=== PATIENT | female | born 1985 | race Hispanic/Latino ===

== ENCOUNTER 2018-12-03 05:03 | Inpatient (IN) | payer SELFPAY ==
[2018-12-03] MEDS ORDERED: Ondansetron PF 4 MG/2 ML Vial ONE ×3 (05:22→13:29)
[2018-12-03] MEDS ORDERED: Morphine 4 MG/ML VIAL ONE (05:22)
[2018-12-03] MEDS ORDERED: Acetaminophen 500 MG TAB ONE (05:22)
[2018-12-03] MEDS ORDERED: Piperacillin/Tazobactam 4.5 GM VIAL ONE (05:50)
[2018-12-03 05:53] LABS: #Lymphocytes 1.1 thou/uL (1.20-3.40); #Monocytes 1.2 thou/uL (0.11-0.59); #Neutrophils 11.2 thou/uL (1.40-6.50); %Basophils 0.1 % (0.0-1.0); %Eosinophils 0.2 % (0.0-10.0); %Lymphocytes 7.8 % (21.0-51.0); %Monocytes 8.8 % (0.0-10.0); %Neutrophils 83.1 % (42.0-75.0); Hemoglobin 12.2 g/dL (12.0-16.0); Mean Corpuscular HGB CONC 31.6 g/dL (32.0-36.0); Mean Corpuscular Hemoglobin 27.1 pg (27.0-31.0); Mean Corpuscular Volume 85.8 fL (78.0-98.0); Mean Platelet Volume 7.4 fL (7.4-10.4); Platelet Count 427 thou/uL (130-400); RBC Distribution Width 12.9 % (11.5-14.5); Red Blood Cell (RBC) Count 4.51 mill/uL (4.20-5.40); White Blood Cell (WBC) Count 13.5 thou/uL (4.8-10.8)
[2018-12-03 05:58] LABS: BHCG - Serum Negative (NEGATIVE); Pregs Control Background? CLEAR/WHITE (CLR/WHITE); Pregs Control Bar Appear? YES (CONTROL BAR)
[2018-12-03 06:15] LABS: ALT (SGPT) 16 U/L (8-55); AST (SGOT) 24 U/L (5-34); Acetaminophen Less than 6.0 mcg/mL (10.0-30.0); Albumin 4.3 g/dL (3.5-5.0); Alcohol Less than 10 mg/dL (Less than 10); Alkaline Phosphatase 68 U/L (40-150); Anion Gap 16 mmol/L (10-20); BUN (Urea Nitrogen) 16 mg/dL (7.0-18.7); Bilirubin, Total 0.4 mg/dL (0.2-1.2); Calc. Creatinine Clearance 0 mL/min (70-130); Calcium 9.7 mg/dL (7.8-10.44); Carbon Dioxide 21 mmol/L (22-29); Chloride 99 mmol/L (98-107); Estimated GFR-MDRD 80; Globulin 3.7 g/dL (2.4-3.5); Glucose 106 mg/dL (70-105); Lipase 41 U/L (8-78); Potassium 4.2 mmol/L (3.5-5.1); Salicylate Less than 8.0 mg/dL (15.0-30.0); Sodium 132 mmol/L (136-145)
[2018-12-03] MEDS ORDERED: Fentanyl 100 MCG/2 ML VIAL ONE ×4 (06:41→17:18)
[2018-12-03 06:44] LABS: Bacteria/HPF 2+ HPF (None Seen); Squamous Epithelial Greater than 50 HPF (0-3)
[2018-12-03 06:45] LABS: Pregnancy Test - Urine (BHCG) Negative (Negative)
[2018-12-03 06:46] LABS: Pregu Control Background? CLEAR/WHITE (CLR/WHITE); Pregu Control Bar Appear? YES (CONTROL BAR)
[2018-12-03 06:48] LABS: Amphetamine Detected (NotDetected); Barbiturates Screen Not Detected (NotDetected); Benzodiazepine Screen Not Detected (NotDetected); Bilirubin Negative (Negative); Blood, Urine Moderate (Negative); Cocaine Metabolite Screen Not Detected (NotDetected); Glucose, Urine (Dipstick) Negative (Negative); Leukocyte Negative (Negative); Medtox Control Line Valid? VALID (VALID); Medtox Reader # READER 4; Methadone Not Detected (NotDetected); Methamphetamine Detected (NotDetected); Nitrite Negative (Negative); Opiate Screen Detected (NotDetected); Oxycodone Screen Not Detected (NotDetected); Phencyclidine (PCP) Not Detected (NotDetected); Protein, Urine (Dipstick) Trace mg/dL (Neg-Trace); THC/Cannabinoid Screen Detected (NotDetected); Tricyclic Screen Not Detected (NotDetected); Urobilinogen 0.2 mg/dL (Less than 2)
[2018-12-03 06:49] LABS: Clarity Cloudy (Clear); Specific Gravity 1.025 (1.002-1.036)
[2018-12-03] MEDS ORDERED: metroNIDAZOLE 500 MG/100 ML BAG ONE (07:13)
--- NOTE | 2018-12-03 08:32 | CT ---
ABDOMEN AND PELVIS CT WITH CONTRAST: COMPARISON: No prior comparison imaging. INDICATION: Pain, emergency exam. FINDINGS: There is a large mass arising from the pelvis and extending to the mid-upper abdomen, 28.8 cm cranioc audal x 26 cm transverse. The mass contains fat density as well as multiple calcifications and fluid density favoring an ovarian dermoid. This produces marked displacement of abdominal and pelvic cont ents due to the extensive volume of the mass. The bowel is incompletely assessed without enteric con trast, although there is borderline dilatation of fluid and air-filled bowel approximating 3 cm. Thi s could e on the basis of extrinsic compression from the mass producing an obstruction of the bowel. No pneumoperitoneum. IMPRESSION: Extensive mass arising from the pelvis extending to the upper and mid abdomen, as above, approximatin g 30 cm in diameter. This favors an ovarian dermoid given the contents of the mass and the site of e xpected origin. Extensive compression of adjacent abdominal and pelvic contents, including the possi bility of extrinsic mass effect producing early changes of bowel obstruction. Recommend surgical con sultation for further care. POS: [facility]
[2018-12-03] MEDS ORDERED: Ondansetron PF 4 MG/2 ML Vial IVP PRN ×2 (09:38→17:08)
[2018-12-03] MEDS ORDERED: Promethazine HCl 25 MG/ML VIAL IM PRN ×2 (09:38→17:08)
[2018-12-03] MEDS ORDERED: Lactated Ringer's 1,000 ML IV SCH ×2 (09:45)
[2018-12-03] MEDS ORDERED: Sodium Chloride 0.9% 1,000 ML IV SCH (09:45)
[2018-12-03] MEDS ORDERED: Morphine 4 MG/ML VIAL SLOW IVP PRN ×2 (09:47→15:30)
[2018-12-03] MEDS ORDERED: ISOVUE-370 76%-LOCM 1 ML ONE (10:48)
[2018-12-03 12:26] LABS: HBSAg Index 0.17 S/CO (0-0.99); HIV (1/2) Antibody/Antigen Non-Reactive (NonReactive); HIV 1/2 INDEX 0.09 S/CO (<1.00); Hep B Surf Ag Non-Reactive S/CO (NonReactive); Hep C IgG Ab Non-Reactive (NonReactive); Hep C Index 0.18 S/CO (0-0.79)
[2018-12-03] MEDS ORDERED: Sodium Chloride 0.9% 100 ML ONE (13:25)
[2018-12-03] MEDS ORDERED: cefOXitin 2 GM VIAL ONE (13:25)
[2018-12-03] MEDS ORDERED: Rocuronium Bromide 10 MG/ML (10ML VIAL) ONE (13:29)
[2018-12-03] MEDS ORDERED: Succinylcholine Chloride 20 MG/ML 10 ml SYRINGE FS ONE (13:29)
[2018-12-03] MEDS ORDERED: PHENYLEPHRINE-NS 100 MCG/ML 10 ML SYRINGE ONE (13:29)
[2018-12-03] MEDS ORDERED: Lidocaine 1% PF 5 ML VIAL ONE (13:29)
[2018-12-03] MEDS ORDERED: Dexamethasone 20 MG/5 ML VIAL ONE (13:29)
[2018-12-03] MEDS ORDERED: PROPOFOL 200 MG/20 ML VIAL ONE (13:29)
[2018-12-03] MEDS ORDERED: Glycopyrrolate 0.2 MG/ML 5 ML SYRINGE ONE (13:29)
[2018-12-03] MEDS ORDERED: Albumin 5% 0 ML ONE (13:34)
[2018-12-03] MEDS ORDERED: Midazolam HCl 2 mg/2 ml Vial ONE (13:34)
[2018-12-03] MEDS ORDERED: Bupivacaine HCl 0.5%/Epinephrine 1:200,000/PF 30 ml Vial ONE (14:55)
[2018-12-03] MEDS ORDERED: Zolpidem Tartrate 5 MG TAB PO PRN (17:08)
[2018-12-03] MEDS ORDERED: diphenhydrAMINE 50 MG/ML VIAL IVP PRN (17:08)
[2018-12-03] MEDS ORDERED: Naloxone HCl 0.4 mg/ml Vial IV PRN (17:08)
[2018-12-03] MEDS ORDERED: diphenhydrAMINE 50 MG/ML VIAL IM PRN (17:08)
[2018-12-03] MEDS ORDERED: fentaNYL Citrate/PF 2,000 MCG in Sodium Chloride 0.9% 60 ML IV PRN (17:08)
[2018-12-03] MEDS ORDERED: diphenhydrAMINE 25 MG CAP PO PRN (17:08)
[2018-12-03] MEDS ORDERED: Communication Order-Pharmacy FS SCH (17:15)
[2018-12-03] MEDS: Sodium Chloride 0.9% 1,000 ML IV SCH ×2 (17:46→18:08)
[2018-12-03 18:13] VITALS: BMI 23.4
[2018-12-03] MEDS: Piperacillin/Tazobactam 3.375 GM in Sodium Chloride 0.9% 100 ML IVPB SCH (18:55)
[2018-12-04] MEDS: Piperacillin/Tazobactam 3.375 GM in Sodium Chloride 0.9% 100 ML IVPB SCH ×5 (00:55→23:40)
--- NOTE | 2018-12-04 01:55 | OP ---
DATE OF PROCEDURE: 12/03/2018 PREOPERATIVE DIAGNOSES: 1. Acute pelvic pain. 2. Abdominal pelvic mass. 3. Polysubstance abuse. POSTOPERATIVE DIAGNOSES: 1. Acute pelvic pain. 2. Abdominal pelvic mass. 3. Polysubstance abuse. PROCEDURE: Exploratory laparotomy with a midline incision and RSO. ANESTHESIA: General. COUNT: Correct. COMPLICATIONS: None. CONDITION: Stable to recovery room. SPECIMEN: 30 cm right ovarian mass suspected to be a dermoid. FINDINGS: Again, a large abdominal pelvic mass. No adhesions. DESCRIPTION OF PROCEDURE: Ms. Iveth Leo, after evaluation in the emergency room, was counseled for exploratory laparotomy with a midline incision and removal of this abdominal pelvic mass. After providing written informed consent, the patient was taken to the operating room, placed under general anesthesia and in a dorsal supine position. She was prepared and draped in a normal sterile fashion. The mass could be palpated near the level of the xiphoid process. A midline incision was made and carried around the belly button to approximately 2 cm above. This incision was carried down to the level of fascia. The fascia was sharply incised and extended inferiorly and superiorly in a sharp manner. Upon entry into the abdomen, we did note that the patient had no adhesive disease around this pelvic mass. The mass appeared to be ovarian by color and palpable location of its blood supply. However, given the size of the mass, we had to extend the incision to approximately 4-5 cm above the umbilicus. The mass was gently squeezed out of the laparotomy incision and a large, very vascular pedicle was identified. This pedicle was clamped with 2 Heaneys and then several free ties were then sequentially used to tie down and cut off the blood supply. The last free tie was put in place with flashing the Heaneys. A Micki stitch was then used to secure the more proximal suture x2, which were also tied down with flashing the Micki. Once this was performed, a 2nd Micki was then brought across to the mass, ovarian side of this pedicle, and the mass was then excised out. The suture was tagged and the Micki was then removed on the pedicle side. There was initially good hemostasis noted and the pedicle was left alone in the abdomen for approximately 5 minutes. Upon inspection of this ovarian mass, which appeared to be a dermoid tumor in nature, this mass was incised in the operating room and found to be primarily full of a brown mucinous material, fat, hair, and what looked to be appeared to be teeth. Reinspection of the abdomen revealed that the pedicle was having some bleeding and on further inspection, the utero-ovarian artery on the uterine side had come loose from the suture. This was grasped on the uterine side. This was the isthmic portion of the tube utero-ovarian ligament was grasped with a Aby clamp and a Micki stitch was then used to secure hemostasis. Upon reinspection of the pedicle, there was no more bleeding. The area was then irrigated thoroughly and visualized and examined under water. There was no evidence of any continued bleeding under relaxation of the pedicle. With hemostasis in place and the mass removed, the peritoneum and fascia were closed with 1 running stitch of 0 PDS. The fat was closed with plain gut and the skin was closed with 4-0 Monocryl. About 30 cc of 0.25% Marcaine were injected into the incision and fascia for some immediate postop pain control. The patient tolerated the procedure well and was taken to recovery after extubation in stable condition. Job ID: [id number] [facility]
[2018-12-04] MEDS: Sodium Chloride 0.9% 1,000 ML IV SCH ×3 (05:56→16:20)
--- NOTE | 2018-12-04 07:36 | PDOC.EVN ---
Event Note - Event Note Event Note: S: Patient with significant pain overnight but feeling better this morning. Has ambulated to bathroom and would like to take a shower. Dmitri PO. O: AFVSS Gen - AAO, NAD Abd - soft, ATTP, nondistended. Incision well approximated without erythema or drainage A/P: 33 y/o s/p ex lab RSO for large dermoid tumor. Continue routine postop care. Consider switch to oral pain medications later today. Encourage ambulation.
[2018-12-04] MEDS ORDERED: Ibuprofen 800 MG TAB PO PRN (08:00)
[2018-12-04] MEDS ORDERED: traMADol HCl 50 MG TAB PO PRN (08:21)
[2018-12-04] MEDS ORDERED: Morphine 4 MG/ML VIAL SLOW IVP SCH (09:45)
[2018-12-04] MEDS: traMADol HCl 50 MG TAB PO PRN ×3 (09:57→20:58)
[2018-12-04 10:03] LABS: #Lymphocytes 1.7 thou/uL (1.20-3.40); #Neutrophils 13.4 thou/uL (1.40-6.50); %Basophils 0.1 % (0.0-1.0); %Eosinophils 0.2 % (0.0-10.0); %Lymphocytes 10.4 % (21.0-51.0); %Monocytes 6.1 % (0.0-10.0); %Neutrophils 83.2 % (42.0-75.0); Hemoglobin 9.5 g/dL (12.0-16.0); Mean Corpuscular HGB CONC 31.6 g/dL (32.0-36.0); Mean Corpuscular Volume 85.6 fL (78.0-98.0); Mean Platelet Volume 6.6 fL (7.4-10.4); Platelet Count 343 thou/uL (130-400); RBC Distribution Width 12.6 % (11.5-14.5); Red Blood Cell (RBC) Count 3.53 mill/uL (4.20-5.40); White Blood Cell (WBC) Count 16.1 thou/uL (4.8-10.8)
[2018-12-04] MEDS: Ketorolac Tromethamine 30 MG/ML VIAL IVP SCH ×2 (13:49→21:19)
[2018-12-05] MEDS: Sodium Chloride 0.9% 1,000 ML IV SCH ×2 (02:19→08:04)
[2018-12-05] MEDS: Ketorolac Tromethamine 30 MG/ML VIAL IVP SCH ×2 (02:20→08:02)
[2018-12-05] MEDS: traMADol HCl 50 MG TAB PO PRN ×2 (02:27→06:24)
[2018-12-05] MEDS: Piperacillin/Tazobactam 3.375 GM in Sodium Chloride 0.9% 100 ML IVPB SCH ×4 (05:24→23:38)
[2018-12-05 06:32] LABS: #Basophils 0.1 thou/uL (0.0-0.2); #Eosinphils 0.2 thou/uL (0.0-0.7); #Lymphocytes 1.7 thou/uL (1.20-3.40); #Monocytes 0.6 thou/uL (0.11-0.59); %Basophils 0.7 % (0.0-1.0); %Eosinophils 1.9 % (0.0-10.0); %Lymphocytes 20.3 % (21.0-51.0); %Monocytes 7.5 % (0.0-10.0); %Neutrophils 69.6 % (42.0-75.0); Hemoglobin 8.3 g/dL (12.0-16.0); Mean Corpuscular HGB CONC 32.2 g/dL (32.0-36.0); Mean Corpuscular Hemoglobin 28.3 pg (27.0-31.0); Mean Corpuscular Volume 87.8 fL (78.0-98.0); Mean Platelet Volume 6.9 fL (7.4-10.4); Platelet Count 286 thou/uL (130-400); RBC Distribution Width 12.6 % (11.5-14.5); Red Blood Cell (RBC) Count 2.94 mill/uL (4.20-5.40); White Blood Cell (WBC) Count 8.6 thou/uL (4.8-10.8)
--- NOTE | 2018-12-05 07:50 | PRG ---
DATE OF SERVICE: 12/05/2018 SUBJECTIVE: The patient is postop day 2 status post exploratory laparotomy with RSO for a large 30 cm mass, suspicious for dermoid tumor. The patient had a positive blood culture result yesterday with 1 of 2 cultures with gram-positive cocci. Final identification pending. Report states it is not Staph aureus, Staph epidermidis, Streptococcus pyogenes, Streptococcus pneumoniae, Listeria or Enterococcus. The patient reports that she has been eating regular diet, had a good dinner yesterday, but is not hungry right now this morning. The patient denies passing gas or bowel movement. She has had difficulty with pain control on tramadol and Toradol, but is ambulating and getting about. She reports some dizziness at times. OBJECTIVE: VITAL SIGNS: Blood pressure 90/58, pulse of 81, respiratory rate 18, temperature 97.6. The patient has remained afebrile since the time of surgery. GENERAL: Patient appears to be in some distress, though alert, oriented, cooperative, and pleasant to interact with. SKIN: Incision is clean, dry, and intact. Soft. LABORATORY DATA: This morning; white count 8.6, hemoglobin 8.3, hematocrit 25.8, platelet count of 286,000. ASSESSMENT AND PLAN: The patient is a 33-year-old female, postop day 2 status post exploratory laparotomy and RSO for large, presumably dermoid tumor. The patient has blood cultures x1 positive for gram-positive cocci with final results pending. The patient has been on Zosyn given her presentation of fever and elevated white count. We will continue the Zosyn until these blood cultures result. The patient has been afebrile since surgery. Pain has been under some control now that the patient is ambulating. We will continue with the tramadol, ibuprofen and add Tylenol to her regimen. The patient has been encouraged to continue to ambulate with assistance if necessary as the patient is describing some dizziness at times. Specimen pathology results are still pending. Job ID: [id number]
[2018-12-05] MEDS: Acetaminophen 500 MG TAB PO SCH ×3 (08:02→18:17)
[2018-12-05] MEDS: Ibuprofen 800 MG TAB PO SCH ×2 (15:33→23:39)
--- NOTE | 2018-12-05 21:55 | PDOC.EVN ---
Event Note - Event Note Event Note: MAE onCall: @1040 Blood culture back with likely skin containment. No fevers today. Path pending. Prob DC to home tomorrow.
[2018-12-06] MEDS: Acetaminophen 500 MG TAB PO SCH ×2 (01:33→06:10)
[2018-12-06] MEDS: Piperacillin/Tazobactam 3.375 GM in Sodium Chloride 0.9% 100 ML IVPB SCH (05:21)
[2018-12-06] MEDS: Sodium Chloride 0.9% 1,000 ML IV SCH (05:24)
--- NOTE | 2018-12-06 06:38 | PDOC.EVN ---
Event Note - Event Note Event Note: MAE Patient seen at bedside Time: 629 See dictation. Cleared for discharge. Incision c/d/i. After I examined her abdomen this morning, the patient was not happy that I had "woken her up to see my stomach". I explained that I was seeing how she was healing before discharge. Nonetheless , she was not happy. She was also not happy with the "nurses here". S. as above. O. VSS afebrile" Path pending A/P: 3 days postop...no evidence ileus of infection. Stop ABX OK for DC to home [facility] for outpatient [facility] in 2 weeks
--- NOTE | 2018-12-06 07:06 | DIS ---
DATE OF ADMISSION: 12/03/2018 DATE OF DISCHARGE: 12/06/2018 PRINCIPAL DIAGNOSES: 1. Pelvic pain. 2. Large pelvic mass. PRINCIPLE PROCEDURE: Exploratory laparotomy with a midline incision and RSO. SERVICES CONSULTED: Anesthesia. HOSPITAL COURSE: In brief, this patient was admitted with Dr. Chico Hernandez on-call. The patient presented to the emergency room with abdominal pain. A large pelvic mass was noted on evaluation. Dr. Hernandez elected to proceed with a midline exploratory laparotomy due to acute pelvic pain. He noted an approximately 30- cm pelvic mass and proceeded with an RSO. She was also initially febrile in the emergency room, so blood cultures were drawn. Blood cultures returned with no growth at 48 hours in one tube and one bottle showed micrococcus, thought to be contaminant. I evaluated the patient on 12/06/2018 in the morning (06:30) at bedside. I found the incision to be clean, dry, and intact. There was no abdominal distention and no guarding. On evaluation, the patient was slightly not cooperative and was not happy to have the abdominal examination. She was also not happy with our nursing staff. She stated that "none of the nurses were any good." However , this may be secondary to the patient's personality as I have been told the patient has been like this since admission. I attempted to appease her by asking if she had any further questions or issues, but she declined to answer. I discussed the patient's affect with the correctional case records supervisor on the floor, she stated she was also belligerent with her and the nursing staff. In terms of path results, the surgical specimen still was not resulted at the time of this dictation. On vital sign review, the patient was afebrile when I evaluated her. It is important to note that she was still receiving IV piperacillin-tazobactam (Zosyn), which I stopped after my evaluation. Through discharge instructions, I gave her instructions to return to [facility] in 2 weeks for a wound check. Medications to go home with will include ibuprofen 800 mg p.o. q.8 hours p.r.n. Because of concern of polysubstance abuse per the ER, and per Dr. Hernandez's handoff to me, I did not write for any narcotic based medication. The incision was clean, dry, and intact with suture. Job ID: [id number] [facility]
[2018-12-06 07:10] VITALS: BP 106/68; TEMP 99.1
[2018-12-06] MEDS: Ibuprofen 800 MG TAB PO SCH (08:22)
--- NOTE | 2018-12-07 14:42 | EKG ---
Test Reason : Blood Pressure : / mmHG Vent. Rate : 133 BPM Atrial Rate : 133 BPM P-R Int : 124 ms QRS Dur : 078 ms QT Int : 290 ms P-R-T Axes : 075 080 065 degrees QTc Int : 431 ms Sinus tachycardia Nonspecific ST abnormality Abnormal ECG Confirmed by SHAMA KANG M.D. ([id number]), food expeditor MELANY RUIZ ([id number]) on 12/07/2018 2:42:18 PM Referred By: Confirmed By:SHAMA KANG M.D.
--- NOTE | 2018-12-11 12:54 | PDOC.EVN ---
Event Note - Event Note Event Note: I have made contact with Ms Loe by phone and have given her the updated info on pathology, mixed malignant germ cell tumor, and her need to see [facility]. Pt' s post op visit has been planned with [facility]. Pt is unfunded. Will contact [facility] for assistance.
== END 2018-12-06 10:57 | disposition home or self-care (01) | DRG 743 ==
LOC: ERS 05:03 → ERHOLD 09:54 → 3SE 17:34 → T4-B 12-04 11:02
PROVIDERS: ADMIT Specialist; ATTEND Specialist
PROC: 0UT50ZZ Resection of Right Fallopian Tube, Open Approach (ICD-10-PCS; principal; 2018-12-03)
PROC: 0UT00ZZ Resection of Right Ovary, Open Approach (ICD-10-PCS; 2018-12-03)
DX: D27.0 Benign neoplasm of right ovary (principal); N83.8 Other noninflammatory disorders of ovary, fallopian tube and broad ligament; I10 Essential (primary) hypertension; F19.10 Other psychoactive substance abuse, uncomplicated; F41.9 Anxiety disorder, unspecified; F32.9 Major depressive disorder, single episode, unspecified; Z90.49 Acquired absence of other specified parts of digestive tract
CPT/HCPCS: 36415; 51701; 74177; 80053; 80306; 80307; 81003; 81015; 81025; 83605; 83690; 84443; 84703; 85025; 86803; 86850; 86900; 86901; 87040; 87149; 87340; 87389; 88307; 88341; 88342; 93005; 96361; 96365; 96366; 96367; 96375; 96376; A4353; J0131; J0670; J0694; J1100; J1885; J2001; J2250; J2270; J2405; J2543; J2704; J3010; J3490; P9045; Q9966

== ENCOUNTER 2019-02-27 19:11 | Emergency (ER) | payer SELFPAY ==
[~2019-02-27 19:11] MED LIST: Iopamidol-370 76% 500 ML 1 ML ONE
[2019-02-27 19:56] LABS: #Basophils 0.1 thou/uL (0.0-0.2); #Eosinphils 0.1 thou/uL (0.0-0.7); #Lymphocytes 1.5 thou/uL (1.20-3.40); #Monocytes 0.5 thou/uL (0.11-0.59); #Neutrophils 6.6 thou/uL (1.40-6.50); %Basophils 0.7 % (0.0-1.0); %Eosinophils 0.8 % (0.0-10.0); %Lymphocytes 16.8 % (21.0-51.0); %Monocytes 6.2 % (0.0-10.0); %Neutrophils 75.6 % (42.0-75.0); Hemoglobin 11.1 g/dL (12.0-16.0); Mean Corpuscular HGB CONC 32.6 g/dL (32.0-36.0); Mean Corpuscular Hemoglobin 28.4 pg (27.0-31.0); Mean Platelet Volume 6.6 fL (7.4-10.4); Platelet Count 520 thou/uL (130-400); RBC Distribution Width 12.8 % (11.5-14.5); White Blood Cell (WBC) Count 8.8 thou/uL (4.8-10.8)
[2019-02-27 19:57] LABS: Pregnancy Test - Urine (BHCG) Negative (Negative); Pregu Control Background? CLEAR/WHITE (CLR/WHITE); Pregu Control Bar Appear? YES (CONTROL BAR); Specific Gravity 1.026 (1.002-1.036)
[2019-02-27] MEDS ORDERED: Ondansetron PF 4 MG/2 ML Vial ONE (19:57)
[2019-02-27] MEDS ORDERED: Morphine 4 MG/ML VIAL ONE ×2 (19:57→20:55)
[2019-02-27 19:59] LABS: Bilirubin Negative (Negative); Blood, Urine Negative (Negative); Clarity Clear (Clear); Glucose, Urine (Dipstick) Normal (Negative); Leukocyte 500 Leu/uL (Negative); Nitrite Negative (Negative); Protein, Urine (Dipstick) 10 mg/dL (Neg-Trace); Squamous Epithelial 0-3 HPF (0-3); Urobilinogen Normal mg/dL (Less than 2); WBC/HPF Greater than 50 HPF (0-3)
[2019-02-27 20:10] LABS: Bacteria/HPF None Seen HPF (None Seen); RBC/HPF 0-3 HPF (0-3)
[2019-02-27 20:19] LABS: ALT (SGPT) Less than 7 U/L (8-55); AST (SGOT) 12 U/L (5-34); Albumin 4.2 g/dL (3.5-5.0); Alkaline Phosphatase 72 U/L (40-110); Anion Gap 13 mmol/L (10-20); BUN (Urea Nitrogen) 15 mg/dL (7.0-18.7); Bilirubin, Total 0.2 mg/dL (0.2-1.2); Calc. Creatinine Clearance 0 mL/min (70-130); Calcium 9.5 mg/dL (7.8-10.44); Carbon Dioxide 27 mmol/L (22-29); Chloride 102 mmol/L (98-107); Estimated GFR-MDRD 54; Globulin 3.5 g/dL (2.4-3.5); Glucose 96 mg/dL (70-105); Potassium 4.2 mmol/L (3.5-5.1); Protein, Total 7.7 g/dL (6.0-8.3); Sodium 138 mmol/L (136-145)
--- NOTE | 2019-02-27 21:10 | CT ---
CT abdomen and pelvis with IV contrast HISTORY: Abdomen pain. Germ cell tumor malignant. COMPARISON: 12/03/2018. FINDINGS: The lung bases are clear. Multiple irregular low density masses are now scattered throughou t the liver, involving each lobe and measuring up to 1.6 cm greatest diameter. The large mixed density mass previously demonstrated within the lower anterior abdomen and pelvis is not the same in appearance on today's exam. It has apparently been removed surgically. A large mass in the retroperitoneum, however, now encompasses the lower abdominal aorta, including th e renal arteries. On the axial images, it measures up to 10.4 cm x 9.6 cm greatest diameters. It extends inferiorly along the right iliac level and extends superiorly into the retrocrural space and the lower posterior mediastinum. The mass compresses and displaces the inferior vena cava laterally. Exact level of compression and obstruction of the left ureter is not evident, although the left kidne y is now enlarged and shows delayed enhancement. There is mild distention of the left renal collecting structures. Within the left lower pelvis, just to the left of the cervix, and oval lobular well circumscribed lidya ogeneous fluid density lesion is now present, measuring up to 5.3 cm length by 2.6 cm diameter. It is more pronounced than on the prior study. IMPRESSION: While the large heterogeneous mass on the previous exam has been removed, there is now a very large retroperitoneal mass surrounding the aorta and extending into the posterior mediastinum. It compresses the inferior vena cava and results in obstruction of the left ureter. It is likely rela noelle to the germ cell malignancy. Mild left hydronephrosis due to left ureteral obstruction. Component of the malignancy is also seen as a lobular fluid density mass in the left lower pelvis. Widespread metastatic disease of the liver.
== END 2019-02-28 01:05 | disposition short-term general hospital (02) ==
LOC: ERS 19:11
DX: K68.9 Other disorders of retroperitoneum (principal); C78.7 Secondary malignant neoplasm of liver and intrahepatic bile duct; F41.9 Anxiety disorder, unspecified; F32.9 Major depressive disorder, single episode, unspecified; F17.210 Nicotine dependence, cigarettes, uncomplicated
CPT/HCPCS: 74177; 80053; 81003; 81015; 81025; 85025; 96361; 96374; 96375; 96376; J2270; J2405; Q9967

== ENCOUNTER 2019-03-19 08:51 | Inpatient (IN) | payer OTHER ==
[2019-03-19] MEDS ORDERED: Morphine 4 MG/ML VIAL ONE (09:53)
[2019-03-19] MEDS ORDERED: Ondansetron PF 4 MG/2 ML Vial ONE (09:53)
[2019-03-19] MEDS ORDERED: Ketorolac Tromethamine 30 MG/ML VIAL ONE (09:54)
[2019-03-19] MEDS ORDERED: Clindamycin/D5W 900 mg/50 ml Premix Bag ONE (10:14)
[2019-03-19] MEDS ORDERED: Iopamidol-370 76% 500 ML 1 ML ONE (11:39)
[2019-03-19] MEDS ORDERED: Fentanyl 100 MCG/2 ML VIAL ONE (12:22)
[2019-03-19] MEDS ORDERED: Rocuronium Bromide 50 MG/5 ML VIAL ONE ×2 (12:22→12:23)
[2019-03-19] MEDS ORDERED: Ketamine 50 MG/ML (10ML VIAL) ONE (12:24)
[2019-03-19] MEDS ORDERED: EPINEPHrine 1 MG/10 ML Abboject SYRINGE ONE (12:32)
[2019-03-19] MEDS ORDERED: fentaNYL Citrate/PF 2,000 MCG in Sodium Chloride 0.9% 60 ML IV SCH ×2 (12:43→15:30)
[2019-03-19] MEDS ORDERED: Propofol 1,000 MG/100 ML VIAL IV ONE (12:47)
[2019-03-19 13:04] LABS: Actual Bicarbonate (HCO3a) 19.7 mEq/L (22-28); Analyzer IN Cardio ER; Base Excess (BEa) -4.6 mEq/L (-2.0 to +3.0); CO2 Tension 32.7 mmHg (35.0-45.0); Calcium, Ionized 1.11 mmol/L (1.12-1.30); Carboxyhemoglobin (COHb) 0.8 gm% (0.0-3.0); Hemoglobin (Hb) 7.5 g/dL (12.0-16.0); O2 Tension (PaO2) 119.4 mmHg (80.0-100.0); Potassium - ABG Lab 3.08 mmol/L (3.70-5.30)
[2019-03-19 13:05] LABS: ALV-art Gradient 124.925 (0-20); Puncture Site RBRACH
--- NOTE | 2019-03-19 13:52 | RAD ---
XR Chest 1 View Portable HISTORY: Respiratory failure COMPARISON: 10/15/2016 FINDINGS: There has been placement of endotracheal tube at the origin of the right main bronchus. Dionicio ogastric tube can be traced into the stomach with tip excluded from the film. The heart size is normal. The lungs are clear. Discussed over the telephone with ER physician Dr. Pablo Hercules at 1:48 PM.
[2019-03-19] MEDS ORDERED: Cefepime 2 GM in Sodium Chloride 0.9% 100 ML IVPB SCH (14:00)
[2019-03-19] MEDS ORDERED: Cefepime 2 GM VIAL ONE (14:23)
[2019-03-19] MEDS ORDERED: Sodium Chloride 0.9% 100 ML ONE (14:23)
[2019-03-19] MEDS ORDERED: Vancomycin 1.5 GRAM/300 ML BAG 1.5 GM in Premix Bag 1 BAG IVPB SCH (15:00)
--- NOTE | 2019-03-19 15:04 | CT ---
CT SOFT TISSUES NECK WITH IV CONTRAST: INDICATIONS: Stage IV ovarian cancer status post initiation of chemotherapy last week, now concern for possible to nsillar abscess. FINDINGS: There is prominent edematous change involving the nasopharynx, oropharynx and right aspect of the hyp opharynx with prominent phlegmon seen involving the right peritonsillar region on image 29 of series 2. No definite drainable fluid collection is evident. There is prominent swelling of the uvula. There is mild retropharyngeal edema without evidence of abscess. There are mild reactive edematous changes involving the epiglottis and the right aspects of the aryepiglottic folds. The subglottic trachea is normal appearing. There are likely reactive lymph nodes involving the right aspect of the neck, with in the right level 2A and 3 positions. The largest is seen within the right level 2A position, measur ing 1.3 cm. 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 The submandibul ar glands and parotids are within normal limits. The thyroid gland is normal appearing. The lung apic es are clear. The upper mediastinum appears within normal limits. There is scattered degenerative and osteoarthritic change. There are small mucus retention cysts within the right maxillary sinus. IMPRESSION: 1. Prominent infection involving the nasopharynx, oropharynx and hypopharynx with suspected region of right paratonsillar phlegmon. No definite drainable fluid collection is evident. There is reactive l ymphadenopathy at the right aspect of the neck. No subglottic process is going on. Small amount of re tropharyngeal edema is present without evidence of a drainable abscess. 2. Findings were called to Dr. Rajput at 11:55 a.m. on 03/19/2019. CODE CR POS: OFF
[2019-03-19 15:21] LABS: ALT (SGPT) 24 U/L (8-55); AST (SGOT) 16 U/L (5-34); Albumin 3.8 g/dL (3.5-5.0); Alkaline Phosphatase 92 U/L (40-110); Anion Gap 14 mmol/L (10-20); BUN (Urea Nitrogen) 8 mg/dL (7.0-18.7); Bilirubin, Total 0.4 mg/dL (0.2-1.2); Calc. Creatinine Clearance 0 mL/min (70-130); Calcium 9.4 mg/dL (7.8-10.44); Carbon Dioxide 24 mmol/L (22-29); Chloride 100 mmol/L (98-107); Estimated GFR-MDRD 89; Glucose 85 mg/dL (70-105); Potassium 3.1 mmol/L (3.5-5.1); Protein, Total 7.8 g/dL (6.0-8.3); Sodium 135 mmol/L (136-145)
[2019-03-19 15:23] LABS: Lactic Acid 1.4 mmol/L (0.5-2.2)
[2019-03-19] MEDS ORDERED: Lorazepam 2 MG/ML VIAL SLOW IVP PRN (15:28)
[2019-03-19] MEDS ORDERED: Propofol BOLUS 1,000 MG/100 ML VIAL IV PRN (15:28)
[2019-03-19] MEDS ORDERED: Fentanyl BOLUS 250 ML IVPB PRN (15:28)
[2019-03-19] MEDS ORDERED: DISCONTINUE PREVIOUS NARCOTIC PAIN MEDICATIONS AND BENZODIAZEPINES FS SCH (15:28)
[2019-03-19] MEDS ORDERED: Morphine 2 MG/ML SYRINGE SLOW IVP PRN (15:28)
[2019-03-19] MEDS ORDERED: Propofol 1,000 MG/100 ML VIAL IV PRN (15:28)
[2019-03-19 15:35] LABS: Hemoglobin 11.4 g/dL (12.0-16.0); Mean Corpuscular HGB CONC 32.1 g/dL (32.0-36.0); Mean Corpuscular Hemoglobin 27.7 pg (27.0-31.0); Mean Corpuscular Volume 86.3 fL (78.0-98.0); Platelet Count 655 thou/uL (130-400); RBC Distribution Width 12.1 % (11.5-14.5); Red Blood Cell (RBC) Count 4.11 mill/uL (4.20-5.40); White Blood Cell (WBC) Count 2.1 thou/uL (4.8-10.8)
[2019-03-19 15:36] LABS: Band 13 % (5-11); Lymphocytes 7 % (21-51); MDiff Complete? YES; Metamyelocyte 1 % (0-0); Monocytes 21 % (0-10); Neutrophil 58 % (42-75); Polychromasia SLIGHT = 2-3 cells (100X) (0-2/hpf)
[2019-03-19] MEDS ORDERED: Acetaminophen 325 MG Suppository PR PRN (15:44)
[2019-03-19] MEDS ORDERED: Norepinephrine 8 MG/0.9% NS 250 ML IVPB PRN (15:44)
[2019-03-19] MEDS ORDERED: Acetaminophen 650 MG/20.3 ML UDCUP PO PRN (15:44)
[2019-03-19] MEDS ORDERED: Bisacodyl 10 MG SUPP PR PRN (15:44)
[2019-03-19] MEDS ORDERED: SYSTANE 3.5 GM TUBE EA EYE PRN (15:44)
[2019-03-19] MEDS ORDERED: Ventilator Sedation Protocol 1 EACH FS SCH (15:45)
[2019-03-19] MEDS ORDERED: Acetaminophen 325 MG TAB PO PRN (15:48)
--- NOTE | 2019-03-19 15:51 | RAD ---
PORTABLE CHEST: Date: 03/19/19 HISTORY: Central line placement. COMPARISON: Exam done earlier today. FINDINGS: Endotracheal and NG tubes remain in satisfactory position. There has been interval placement of a lef t subclavian line. Catheter tip overlies the distal superior vena cava/right atrium junction. There a re no signs of pneumothorax. IMPRESSION: No evidence for pneumothorax. POS: [facility]
[2019-03-19 16:03] VITALS: BP 151/106
[2019-03-19] MEDS ORDERED: D5 0.9% NS w/ 20 mEq KCl 1,000 ML IV SCH (16:15)
[2019-03-19] MEDS ORDERED: Norepinephrine 8 MG in Dextrose 5% in Water 242 ML IVPB PRN (16:50)
[2019-03-19 17:10] VITALS: TEMP 98.8
[2019-03-19 17:38] LABS: Bilirubin Negative (Negative); Blood, Urine Moderate (Negative); Clarity Hazy (Clear); Glucose, Urine (Dipstick) Negative (Negative); Leukocyte Negative (Negative); Nitrite Negative (Negative); Protein, Urine (Dipstick) 100 mg/dL (Neg-Trace); Urobilinogen 0.2 mg/dL (Less than 2)
[2019-03-19 17:39] LABS: Bacteria/HPF None Seen HPF (None Seen); Trichomonas/HPF 1+ HPF (None Seen)
[2019-03-19] MEDS ORDERED: Albumin 25% 25 GM/100 ML BOT IVPB SCH (17:45)
[2019-03-19] MEDS ORDERED: Sodium Chloride 0.9% 1,000 ML IV SCH (17:45)
[2019-03-19] MEDS ORDERED: Piperacillin/Tazobactam 3.375 GM in Sodium Chloride 0.9% 100 ML IVPB SCH (18:00)
[2019-03-19] MEDS ORDERED: Sodium Chloride 0.45% 1,000 ML IV SCH (18:45)
--- NOTE | 2019-03-19 18:51 | CON ---
DATE OF CONSULTATION: HISTORY OF PRESENT ILLNESS: Iveth Leo is a 34-year-old female, who gets care at [facility]. Apparently, she has received chemo recently. She presented with hypotension and sore throat. She was found to have a peritonsillar abscess. She was intubated, received a large volume resuscitation in the emergency department and was transferred to the critical care unit. I was consulted. PAST MEDICAL HISTORY: Past medical history is not directly obtainable from her, but the emergency department physician that I talked to told me she had stage IV cervical cancer. The ER note says she has stage IV ovarian cancer. She has had a cholecystectomy and appendectomy in the past. SOCIAL HISTORY: It is unknown whether she smokes or drinks, but the ER record says she uses drugs, methamphetamines and still smokes. ALLERGIES: THERE ARE NO REPORTED ALLERGIES. PHYSICAL EXAMINATION: VITAL SIGNS: Blood pressure 103/66, heart rate was in the 90s, respiratory rate was 18 while on mechanical ventilation. Her minute volume was about 8 L a minute. HEAD AND NECK: Unremarkable. She had an oral endotracheal tube in place. She nodded that she just wanted to be sedated. At that time, I asked the nurse to increase her sedation. LUNGS: Clear anteriorly. HEART: Regular rhythm. S1 and S2 are normal. ABDOMEN: Soft Chest x-ray, there are clear lung green. CT of her neck showed nasopharyngeal, oropharyngeal, and hypopharyngeal peritonsillar phlegmon. Ear, Nose, and Throat Surgery does not feel like she has much swelling from my discussion with Dr. Albarado. After Dr. Albarado's visit with the patient, I was called back to the room, and she was writing on a piece of paper that she wanted the tube out and wanted to . She was on propofol and fentanyl at that time, and I did not feel that she could be considered competent given that she presented with clinical sepsis. I asked the nurses to sedate her more. In the interim, she has since self-extubated. I have asked the charge nurse to have someone track down family to get them up here to talk to her. She wants to make herself a do not resuscitate patient with the family's consent that is not unreasonable, but she is in a position where I am not sure she is competent to sign out against medical advice. Critical care time, an hour and a half in total, multiple visits to the room plus initial intervention plus coordinating care on the unit. Job ID: [id number]
[2019-03-19 19:27] LABS: Amphetamine Not Detected (NotDetected); Barbiturates Screen Not Detected (NotDetected); Benzodiazepine Screen Not Detected (NotDetected); Cocaine Metabolite Screen Not Detected (NotDetected); Medtox Control Line Valid? VALID (VALID); Medtox Reader # READER 1; Methadone Not Detected (NotDetected); Methamphetamine Not Detected (NotDetected); Opiate Screen Not Detected (NotDetected); Oxycodone Screen Not Detected (NotDetected); Phencyclidine (PCP) Not Detected (NotDetected); THC/Cannabinoid Screen Detected (NotDetected); Tricyclic Screen Not Detected (NotDetected)
[2019-03-19] MEDS ORDERED: Famotidine 40 MG/5 ML Oral Suspension PER TUBE SCH (21:00)
[2019-03-19] MEDS ORDERED: Famotidine/PF 20 mg/2ml Vial SLOW IVP SCH (21:00)
[2019-03-19] MEDS ORDERED: Heparin 5,000 UNITS/ML VIAL SC SCH (21:00)
[2019-03-19] MEDS ORDERED: Vancomycin HCl 1 GM in Premix Bag 1 BAG IVPB SCH (22:00)
--- NOTE | 2019-03-20 00:50 | CON ---
DATE OF CONSULTATION: REASON FOR CONSULTATION: The patient was seen in consultation by Dr. Dunn for evaluation of tonsil abscess. BRIEF HISTORY: This is a 34-year-old female with history of cancer. She presented to the emergency room with septic conditions with low blood pressures. CT scan confirmed a peritonsillar cellulitis, retropharyngeal cellulitis, and lateral pharyngeal wall cellulitis. There was no fluid collections. They required surgical draining. She was intubated secondary to low blood pressures and was being prepared for transfer to [facility]. The patient now remains intubated in the ICU. She feels her swelling has improved, although she is currently on sedative medicines. PHYSICAL EXAMINATION: HEENT: The patient has orotracheal intubation present. The limited exam of the oral cavity shows markedly enlarged tonsils bilaterally, nearly touching the endotracheal tube with mild erythema. Tongue is soft. Floor of mouth is clear. NECK: Shows some mildly tender lymphadenopathy in the right level 2 and right level 3 areas, otherwise the anterior neck landmarks are within normal limits. DIAGNOSTIC STUDIES: Her CT scan of the neck with contrast was reviewed by me, which shows intratonsillar cellulitis and peritonsillar cellulitis along with mild retropharyngeal cellulitis. No evidence of abscess collection. There are some lymph nodes 2 cm or less scattered throughout the jugulodigastric chain on the right more so than the left. ASSESSMENT: 1. Bilateral acute tonsillitis. 2. Peritonsillar cellulitis. No evidence of abscess. 3. Retropharyngeal cellulitis. No evidence of abscess. PLAN: She can remain intubated overnight septic condition and hypotensive episodes earlier and possible concern for airway compromise. Also, she will continue on her IV antibiotics overnight, likely extubation in the morning, and we will follow up with her then. Job ID: [id number]
--- NOTE | 2019-03-20 07:19 | HP ---
PRIMARY CARE: [facility]. CHIEF COMPLAINT: Generalized weakness. HISTORY OF PRESENT ILLNESS: The patient is a 34-year-old female with ovarian cancer, currently on chemotherapy, presented to the emergency room with above complaints. The patient is currently intubated and not much information is available from the patient. No family at the bedside. History obtained from the ER chart. The patient's last chemotherapy was approximately 1 week ago at [facility]. She has stage IV ovarian cancer. She presented with generalized weakness and body aches. She also complained of pain in her inner throat along with low-grade fever. She denies any sick contacts. Her initial vital signs in the emergency room showed temperature 99 with respirations of 16, heart rate of 124 with a blood pressure 134/76. She was subsequently intubated for airway protection. PAST MEDICAL HISTORY: 1. Ovarian cancer, on chemotherapy, at [facility]. 2. Anxiety. 3. History of seizure disorder during childhood. PAST SURGICAL HISTORY: 1. Appendectomy. 2. Surgery for tubal . 3. Exploratory laparotomy for pelvic mass excision in November of this year. ALLERGIES: NO KNOWN DRUG ALLERGIES. CURRENT HOME MEDICATIONS: Per ER report, the patient is on Augmentin, citalopram, hydroxyzine, oxycodone, and olanzapine. SOCIAL HISTORY: The patient has a history of smoking. Denies current drug use. She has abused methamphetamines in the past. FAMILY HISTORY: Negative for premature coronary artery disease. REVIEW OF SYSTEMS: Cannot be obtained from the patient due to current clinical status. PHYSICAL EXAMINATION: VITAL SIGNS: As discussed above. GENERAL: 34-year-old female, intubated on mechanical ventilation HEENT: Head, atraumatic and normocephalic. The patient is intubated. NECK: Supple. No JVD. LUNGS: Showed scattered rhonchi without significant rales. No wheezing. Lungs were symmetrical. HEART: S1, S2 present. Regular rate and rhythm, tachycardic. ABDOMEN: Soft. Bowel sounds present. No rebound or guarding. EXTREMITIES: No edema or calf tenderness. NEUROLOGIC: Grossly nonfocal. The patient is following commands appropriately. PSYCHIATRY: Alert, awake, and oriented x3. The patient is awake. SKIN: Warm and dry. LYMPH NODES: No palpable lymph nodes in the neck. PERIPHERAL VASCULAR: Radial pulses palpable bilaterally, low volume. MUSCULOSKELETAL: No joint swelling or tenderness. LABORATORY FINDINGS: CBC showed WBC 2.1 with 13% bandemia, 58% neutrophil. ABGs showed pH 7.40 with pCO2 of 32.7, and bicarbonate 19.7 with O2 saturation of 98.2. Chemistry showed sodium 135, potassium 3.1, chloride 100, bicarb 24, BUN 8, creatinine 0.74. LFTs in normal range. Lactic acid 1.4. Telemetry monitoring by my review showed sinus tachycardia. IMAGING STUDIES: Chest x-ray by my review was negative for infiltrate. CT scan of the soft tissue of the neck showed prominent edematous changes involving the nasopharynx, oropharynx and right aspect of the hypopharynx with prominent phlegmon seen involving the right peritonsillar region without any definite drainable fluid collection. There was also prominent swelling of the uvula along with mild reactive edematous changes involving the epiglottis. IMPRESSION: 1. Severe sepsis secondary to suspected right peritonsillar abscess. 2. Acute hypoxic respiratory failure secondary to #one. 3. Hyponatremia/hypokalemia. 4. Chronic kidney disease, stage 2. 5. Chronic anemia. 6. Leukopenia, probably secondary to chemotherapy. 7. Ovarian cancer, on chemotherapy. 8. Tobacco dependence. PLAN: The patient will be monitored in the intensive care unit. We will start her on vancomycin and Zosyn. Consult Infectious Disease, ENT as well as Critical Care. IV hydration. We will start her on low-dose Levophed for septic shock. Daily x-rays. Daily ABGs. Recheck labs in a.m. Isolation, ventilation, sedation protocol. We will discuss the plan with the family when they arrive. Plan was discussed with the patient. Job ID: [id number]
--- NOTE | 2019-03-20 08:36 | DIS ---
DATE OF ADMISSION: 03/19/2019 DATE OF DISCHARGE: 03/19/2019 DISCHARGE DISPOSITION: Home. The patient signed against medical advice. BRIEF HOSPITAL COURSE: Please refer to my history and physical dictated earlier today for details on initial hospital presentation. The patient was admitted to the intensive care unit with a diagnosis of acute hypoxic respiratory failure secondary to suspected right peritonsillar abscess. The patient was monitored in the intensive care unit. She was evaluated by Pulmonary Critical Care, Dr. Dunn, as well as ENT. Later on in the evening, the patient signed against medical advise. Please note the nurse's note for detail. FINAL DIAGNOSIS: Please refer to my history and physical dictated earlier today. Job ID: [id number]
== END 2019-03-19 19:35 | disposition left against medical advice (07) | DRG 871 ==
LOC: ERS 08:51 → CCU 15:03
PROVIDERS: ADMIT Internal Medicine; ATTEND Internal Medicine
PROC: 5A1935Z Respiratory Ventilation, Less than 24 Consecutive Hours (ICD-10-PCS; principal; 2019-03-19)
PROC: 3E033XZ Introduction of Vasopressor into Peripheral Vein, Percutaneous Approach (ICD-10-PCS; 2019-03-19)
DX: A41.9 Sepsis, unspecified organism (principal); J96.01 Acute respiratory failure with hypoxia; R65.21 Severe sepsis with septic shock; C56.9 Malignant neoplasm of unspecified ovary; E87.1 Hypo-osmolality and hyponatremia; C78.02 Secondary malignant neoplasm of left lung; C78.01 Secondary malignant neoplasm of right lung; J39.1 Other abscess of pharynx; F41.9 Anxiety disorder, unspecified; E87.6 Hypokalemia; N18.2 Chronic kidney disease, stage 2 (mild); D64.9 Anemia, unspecified; D70.1 Agranulocytosis secondary to cancer chemotherapy; T45.1X5A Adverse effect of antineoplastic and immunosuppressive drugs, initial encounter; J03.90 Acute tonsillitis, unspecified; Z92.21 Personal history of antineoplastic chemotherapy; Z90.49 Acquired absence of other specified parts of digestive tract; Z87.891 Personal history of nicotine dependence
CPT/HCPCS: 70491; 71045; 80053; 80306; 81001; 82805; 83605; 85025; 87040; 94002; J0171; J0692; J1885; J2270; J2405; J2704; J3010; J3490; Q9967

== ENCOUNTER 2019-10-28 14:55 | Emergency (ER) | payer OTHER, SELFPAY | END 2019-10-28 15:15 | disposition left against medical advice (07) | LOC: ERS 14:55 | DX: Z53.21 Procedure and treatment not carried out due to patient leaving prior to being seen by health care provider (principal) ==

== ENCOUNTER 2019-12-23 13:33 | Inpatient (IN) | payer OTHER ==
[~2019-12-23 13:33] MED LIST changes: +Iopamidol 370 76% 100 ML VIAL ONE; -Iopamidol-370 76% 500 ML 1 ML ONE
[2019-12-23 14:14] LABS: #Lymphocytes 1.5 thou/uL (1.20-3.40); #Monocytes 0.8 thou/uL (0.11-0.59); #Neutrophils 9.3 thou/uL (1.40-6.50); %Basophils 0.2 % (0.0-1.0); %Eosinophils 0.4 % (0.0-10.0); %Lymphocytes 13.2 % (21.0-51.0); %Monocytes 6.8 % (0.0-10.0); %Neutrophils 79.4 % (42.0-75.0); Hemoglobin 9.6 g/dL (12.0-16.0); Mean Corpuscular HGB CONC 32.5 g/dL (32.0-36.0); Mean Corpuscular Hemoglobin 28.1 pg (27.0-31.0); Mean Corpuscular Volume 86.5 fL (78.0-98.0); Mean Platelet Volume 6.6 fL (7.4-10.4); Platelet Count 680 thou/uL (130-400); RBC Distribution Width 12.8 % (11.5-14.5); Red Blood Cell (RBC) Count 3.43 mill/uL (4.20-5.40); White Blood Cell (WBC) Count 11.7 thou/uL (4.8-10.8)
[2019-12-23] MEDS ORDERED: Ondansetron PF 4 MG/2 ML Vial ONE (14:21)
[2019-12-23] MEDS ORDERED: Morphine 4 MG/ML VIAL ONE ×3 (14:21→18:53)
[2019-12-23 14:40] LABS: ALT (SGPT) 21 U/L (8-55); AST (SGOT) 28 U/L (5-34); Albumin 3.4 g/dL (3.5-5.0); Alkaline Phosphatase 141 U/L (40-110); Anion Gap 15 mmol/L (10-20); BUN (Urea Nitrogen) 22 mg/dL (7.0-18.7); Bilirubin, Total 0.6 mg/dL (0.2-1.2); CK (CPK) 37 U/L (29-168); Calc. Creatinine Clearance 0 mL/min (70-130); Calcium 9.1 mg/dL (7.8-10.44); Carbon Dioxide 25 mmol/L (22-29); Chloride 99 mmol/L (98-107); Estimated GFR-MDRD 55; Globulin 3.4 g/dL (2.4-3.5); Glucose 125 mg/dL (70-105); Lipase 30 U/L (8-78); Potassium 3.2 mmol/L (3.5-5.1); Protein, Total 6.8 g/dL (6.0-8.3); Sodium 136 mmol/L (136-145)
--- NOTE | 2019-12-23 14:41 | RAD ---
XR Chest 1 View Portable HISTORY: Shortness of breath FINDINGS: The heart size is normal. The lungs are well expanded without focal areas of consolidation, pneumothorax or pleural effusions. IMPRESSION: No radiographic evidence of acute cardiopulmonary process.
[2019-12-23 15:03] LABS: Bilirubin 1+ (Negative); Blood, Urine Negative (Negative); Clarity Clear (Clear); Glucose, Urine (Dipstick) Normal (Negative); Ketone, Urine 10 mg/dL (Negative); Leukocyte 25 Leu/uL (Negative); Nitrite Negative (Negative); Protein, Urine (Dipstick) 100 mg/dL (Neg-Trace); RBC/HPF 0-3 HPF (0-3)
[2019-12-23 15:06] LABS: Pregnancy Test - Urine (BHCG) Negative (Negative)
[2019-12-23 15:07] LABS: Pregu Control Background? CLEAR/WHITE (CLR/WHITE); Pregu Control Bar Appear? YES (CONTROL BAR); Specific Gravity 1.044 (1.002-1.036)
[2019-12-23 15:18] LABS: Specific Gravity, Urine 1.044 (1.002-1.036)
[2019-12-23 15:19] LABS: Bacteria/HPF Rare-Few HPF (None Seen)
--- NOTE | 2019-12-23 16:03 | CT ---
CT ABDOMEN AND PELVIS WITH IV CONTRAST: 12/23/19 HISTORY: Abdominal pain. Patient had a tumor removed from his abdomen. COMPARISON: 02/27/19. A few new nodules in the lung bases bilaterally, the largest measuring 1 cm at the left lung base. Mu ltiple masses are seen in the liver, several of which are new since the last exam. The largest of the se measure 12.6 and 9.3 cm respectively. There is worsening of right sided retrocrural lymphadenopath y measuring 6 cm. the previously noted left retrocrural lymphadenopathy is not seen. The spleen, pancreas, adrenal glands and right kidney are normal. There is a large predominantly left sided retroperitoneal mass with encompassment of the abdominal aorta and mass effect from the left k idney causing moderate hydronephrosis. There is left sided mass in the deep pelvis measuring 5.2 cm, likely due to lymphadenopathy. The left sided large retroperitoneal mass may also involve the left p soas muscle. This measures 13 x 13 x 16 cm. There is a 2.5 cm right para-aortic lymphadenopathy. No free air or free fluid is seen in the abdomen or pelvis. The uterus is present. The small bowel lo ops are not abnormally dilated. There is colonic diverticulosis. The bony structures are unremarkable . IMPRESSION: Findings are consistent with metastatic disease. POS: OFF
[2019-12-23] MEDS ORDERED: Sodium Chloride 0.9% 100 ML ONE (16:29)
[2019-12-23] MEDS ORDERED: Cefepime 2 GM VIAL ONE (16:29)
[2019-12-23] MEDS ORDERED: Metoclopramide HCl 10 MG/2 ML VIAL ONE (17:31)
[2019-12-23] MEDS ORDERED: diphenhydrAMINE 50 MG/ML VIAL ONE (17:31)
--- NOTE | 2019-12-23 21:15 | PDOC.HHP ---
Hospitalist HPI - History of Present Illness Back pain History of Present Illness: Ms. Leo is a 34 year-old homeless female with a PMHx of stage 4 metastatic ovarian cancer, depression, schizoaffective disorder who presents for 3-day onset of generalized abdominal pain. Reports pain is mostly localized to left flank and associated with nausea/vomitting. Pt has had poor PO intake over the past few days. Denies dysuria. Pt notes small amount of blood in stool, but is associated with her menses. Does not white/light colored stools intermittently. She also endorses lower extremity swelling which is worse in her R leg over the past few days. Pt follows with Dr. Raina Bernstein of Oncology at [facility]. She reports that she completed two rounds of chemotherapy with the last being in April of 2019, and that she did not finish additional rounds. Denies SOB. Denies sick contacts. Work-up in the ED included EKG which showed sinus tachycardia, chest x-ray which was negative for acute process, sodium of 136, potassium of 3.2. BUN/CR of 22/1.12. H/H of 9.6/29.[address] abdomen revealed multiple liver masses, and a large retroperitoneal mass which is wrapped around the abdominal aorta. Plan in the emergency room was to transfer patient to [facility] for oncology follow-up, however there are no available beds. Patient was admitted to the medicine service for pain management until she can be transferred to [facility]. Hospitalist ROS - Review of Systems Constitutional: denies: fever, chills, sweats, weakness, malaise, other Eyes: denies: pain, vision change, conjunctivae inflammation, eyelid inflammation, redness, other ENT: denies: ear pain, ear discharge, nose pain, nose discharge, nose congestion , mouth pain, mouth swelling, throat pain, throat swelling, other Respiratory: denies: cough, dry, shortness of breath, hemoptysis, SOB with excertion, pleuritic pain, sputum, wheezing, other Cardiovascular: denies: chest pain, palpitations, orthopnea, paroxysmal noc. dyspnea, edema, light headedness, other Gastrointestinal: reports: nausea, vomiting, abdominal pain. denies: diarrhea, constipation, melena, hematochezia, other Genitourinary: denies: dysuria, frequency, incontinence, hematuria, retention, other Musculoskeletal: reports: back pain. denies: neck pain, shoulder pain, arm pain , hand pain, leg pain, foot pain, other Skin: denies: rash, lesions, lamine, bruising, other Neurological: denies: weakness, numbness, incoordination, change in speech, confusion, seizures, other - Medication Medications: No home medications. NKDA Hospitalist History - Past Medical History Other Medical History: Medical history of schizoaffective disorder, depression, ovarian cancer s/p ovarian tumor resection in November of 2018. - Family History Family History: reports: no pertinent history - Social History Smoking Status: Current some day smoker Tobacco Type: cigarettes Alcohol: reports: None Drugs: reports: marijuana, methamphetamine Living Situation: Homeless Activity level: independent ambulation - Exam General Appearance: NAD, awake alert Eye: PERRL, anicteric sclera ENT: normocephalic atraumatic, no oropharyngeal lesions, moist mucosa Neck: supple, symmetric, no JVD, no thyromegaly, no lymphadenopathy, no carotid bruit Heart: RRR, no murmur, no gallops, no rubs, normal peripheral pulses Respiratory: CTAB, no wheezes, no rales, no ronchi, normal chest expansion, no tachypnea, normal percussion Gastrointestinal: soft, non-tender, non-distended, normal bowel sounds, no palpable masses, no hepatomegaly, no splenomegaly, no bruit Extremities: no cyanosis, no clubbing, no edema Skin: normal turgor, no lesions, no rashes Musculoskeletal: normal tone, normal strength, no muscle wasting Psychiatric: normal affect, normal behavior, A&O x 3 Hospitalist Results - Labs Result Diagrams: 12/24/19 03:36 12/24/19 03:36 Lab results: WBC 11.7 thou/uL (4.8-10.8) H 12/23/19 14:03 Hgb 9.6 g/dL (12.0-16.0) L 12/23/19 14:03 Hct 29.7 % (36.0-47.0) L 12/23/19 14:03 MCV 86.5 fL (78.0-98.0) 12/23/19 14:03 Plt Count 680 thou/uL (130-400) H 12/23/19 14:03 Neutrophils % 79.4 % (42.0-75.0) H 12/23/19 14:03 Sodium 136 mmol/L (136-145) 12/23/19 14:03 Potassium 3.2 mmol/L (3.5-5.1) L 12/23/19 14:03 Chloride 99 mmol/L (98-107) 12/23/19 14:03 Carbon Dioxide 25 mmol/L (22-29) 12/23/19 14:03 BUN 22 mg/dL (7.0-18.7) H 12/23/19 14:03 Creatinine 1.12 mg/dL (0.6-1.1) H 12/23/19 14:03 Glucose 125 mg/dL (70-105) H 12/23/19 14:03 Lactic Acid 1.4 mmol/L (0.5-2.2) 12/23/19 15:31 Calcium 9.1 mg/dL (7.8-10.44) 12/23/19 14:03 Total Bilirubin 0.6 mg/dL (0.2-1.2) 12/23/19 14:03 AST 28 U/L (5-34) 12/23/19 14:03 ALT 21 U/L (8-55) 12/23/19 14:03 Alkaline Phosphatase 141 U/L (40-110) H 12/23/19 14:03 Creatine Kinase 37 U/L (29-168) 12/23/19 14:03 Troponin I 0.011 ng/mL (< 0.028) 12/23/19 14:03 Serum Total Protein 6.8 g/dL (6.0-8.3) 12/23/19 14:03 Albumin 3.4 g/dL (3.5-5.0) L 12/23/19 14:03 Lipase 30 U/L (8-78) 12/23/19 14:03 Urine Ketones 10 mg/dL (Negative) A 12/23/19 14:35 Urine Blood Negative (Negative) 12/23/19 14:35 Urine Nitrite Negative (Negative) 12/23/19 14:35 Ur Leukocyte Esterase 25 Domenica/uL (Negative) A 12/23/19 14:35 Urine RBC 0-3 HPF (0-3) 12/23/19 14:35 Urine WBC 7-10 HPF (0-3) A 12/23/19 14:35 Ur Squamous Epith Cells 7-10 HPF (0-3) A 12/23/19 14:35 Urine Bacteria Rare-Few HPF (None Seen) 12/23/19 14:35 Hospitalist H&P A/P - Problem (1) Ovarian cancer Status: Acute (2) Abdominal pain Code(s): R10.9 - UNSPECIFIED ABDOMINAL PAIN Status: Acute (3) Asymptomatic bacteriuria Code(s): R82.71 - BACTERIURIA Status: Acute (4) Swelling of lower extremity Code(s): M79.89 - OTHER SPECIFIED SOFT TISSUE DISORDERS Status: Acute - Plan Plan: Stage IV Metastatic Ovarian Cancer: 34F with pmhx of stage IV ovarian cancer presents lost to follow-up 2/2 homelessness with 3 day onset of abdominal and flank pain. CT abdomen pelvis revealed multiple masses in the liver, worsening of right sided retrocrural lymphadenopathy, and a large retroperitoneal mass which encompasses the aorta with mass effect to the L kidney causes hydronephrosis. Plan is for patient to transfer to [facility] for oncologic care once a bed opens, Dr. Quinones in [facility] intensive care unit/onc has accepted the patient. PLAN: -Coordinate transfer -Oncology consult -Pain control with morphine -BMP, Ca, Uric acid, Mg, Phos Abdominal Pain: Abdominal pain likely 2/[address] abdomen with liver mets and large retroperitoneal mass. T david 0.06, Alk phos 141, AST/ALT 28/21. Afebrile. WBC 11.7. PLAN: -Pain control -Monitor electrolytes Acute Kidney Injury: Mild MILLER with BUN/Cr 22/1.12. Pt reports poor PO intake over past few days. PLAN: -IVF -Monitor kidney function Asymptomatic Bacteriuria: UA leukocyte esterase positive, 7-10 WBCs, few bacteria. Patient denies urinary symptoms at this time, so no indication for abx. PLAN: -Continue to monitor for symptoms LLE Swelling: Pt has noted lower extremity swelling, L>R. PLAN: -LE venous duplex DVT prophylaxis: lovenox FULL CODE Pt has named her mother as medical decision maker. Case discussed with Dr. Bates.
[2019-12-23] MEDS ORDERED: Acetaminophen 325 MG TAB PO PRN (21:20)
[2019-12-23] MEDS ORDERED: Morphine 4 MG/ML VIAL SLOW IVP PRN ×2 (21:21)
[2019-12-23] MEDS ORDERED: Ondansetron PF 4 MG/2 ML Vial IVP PRN (21:52)
[2019-12-23] MEDS ORDERED: Sodium Chloride 0.9% (PF) 10 ML VIAL FS PRN (22:00)
[2019-12-23 22:05] VITALS: BMI 28.9
[2019-12-23] MEDS ORDERED: Pantoprazole 40 MG VIAL IVP SCH (22:15)
[2019-12-23] MEDS ORDERED: Morphine 2 MG/ML VIAL SLOW IVP SCH (22:45)
[2019-12-23] MEDS ORDERED: Sodium Chloride 0.9% 1,000 ML IV SCH (22:45)
[2019-12-23 22:47] LABS: Calcium 7.8 mg/dL (7.8-10.44); Magnesium 1.8 mg/dL (1.6-2.6); Phosphorus 2.3 mg/dL (2.3-4.7); Uric Acid 4.2 mg/dL (2.6-6.0)
--- NOTE | 2019-12-23 23:26 | ULT ---
ULTRASOUND DOPPLER DUPLEX VENOUS LEFT LOWER EXTREMITY: DATE: 12/23/2019 HISTORY: Left lower extremity pain and edema. 34-year-old female TECHNIQUE: Grayscale, color-flow, and spectral analysis, of major veins of left lower extremity. FINDINGS: There is demonstration of blood flow with normal compressibility, of the left common femoral, profund a femoral, greater saphenous, femoral, popliteal, and posterior tibial, veins. IMPRESSION: Negative. No deep venous thrombosis of left lower extremity.
[2019-12-23] MEDS ORDERED: Melatonin 3 MG TAB PO PRN (23:39)
[2019-12-23] MEDS ORDERED: Bisacodyl 5 MG TAB PO PRN (23:48)
[2019-12-23] MEDS ORDERED: Nicotine 14 MG PATCH TD SCH (23:59)
[2019-12-24 03:49] LABS: #Basophils 0.1 thou/uL (0.0-0.2); #Eosinphils 0.1 thou/uL (0.0-0.7); #Lymphocytes 1.8 thou/uL (1.20-3.40); #Monocytes 0.7 thou/uL (0.11-0.59); #Neutrophils 6.3 thou/uL (1.40-6.50); %Basophils 0.6 % (0.0-1.0); %Lymphocytes 20.4 % (21.0-51.0); %Monocytes 8.3 % (0.0-10.0); %Neutrophils 69.8 % (42.0-75.0); Mean Corpuscular HGB CONC 32.3 g/dL (32.0-36.0); Mean Corpuscular Hemoglobin 28.5 pg (27.0-31.0); Mean Platelet Volume 6.5 fL (7.4-10.4); Platelet Count 494 thou/uL (130-400); RBC Distribution Width 12.7 % (11.5-14.5); Red Blood Cell (RBC) Count 2.81 mill/uL (4.20-5.40)
[2019-12-24 04:06] LABS: Anion Gap 12 mmol/L (10-20); BUN (Urea Nitrogen) 11 mg/dL (7.0-18.7); Calc. Creatinine Clearance 121 mL/min (70-130); Calcium 7.5 mg/dL (7.8-10.44); Carbon Dioxide 23 mmol/L (22-29); Chloride 103 mmol/L (98-107); Estimated GFR-MDRD 90; Glucose 106 mg/dL (70-105); Potassium 3.5 mmol/L (3.5-5.1); Sodium 134 mmol/L (136-145)
[2019-12-24] MEDS ORDERED: Electrolyte Replacement Protoc 1 EACH EACH FS SCH (04:45)
[2019-12-24] MEDS ORDERED: Magnesium 2 GM/50 ML 2 GM in Premix Bag 1 BAG IVPB SCH (05:00)
[2019-12-24] MEDS ORDERED: Potassium Chloride 20 MEQ TAB PO SCH (05:00)
--- NOTE | 2019-12-24 07:29 | PDOC.EVN ---
Event Note - Event Note Event Note: I see that the ER had put in a consult for OBGYN. Reviewing that chart the patient has a known diagnosis of stage 4 ovarian cancer with a doctor identified at [facility] as her oncologist. The initial attempt to transfer was unsuccessful due to no available beds. I see the plan is to transfer her to her primary oncologist. I do not see how we can contribute to her care at this time. If there is a specific question we can answer please don' t hesitate to contact us. ASCOM # is [id number]. [place].
[2019-12-24] MEDS ORDERED: Morphine 4 MG/ML VIAL SLOW IVP PRN (08:01)
[2019-12-24] MEDS ORDERED: Acetaminophen 325 MG TAB PO PRN (08:35)
[2019-12-24] MEDS ORDERED: Enoxaparin Sodium 40 MG/0.4 ML SYRINGE SC SCH (09:00)
[2019-12-24] MEDS ORDERED: Pantoprazole 40 MG VIAL IVP SCH (09:00)
[2019-12-24] MEDS ORDERED: Vancomycin HCl 1.5 GM in Sodium Chloride 0.9% 250 ML 300 ML IVPB SCH (12:00)
[2019-12-24] MEDS: HYDROcodone/Acetaminophen 5/325 mg Tablet PO PRN ×2 (12:16→17:30)
[2019-12-24 12:22] VITALS: BP 106/70
[2019-12-24 12:24] VITALS: TEMP 97.6
[2019-12-24 13:04] LABS: SARS-CoV-2 MS2 Positive; SARS-CoV-2 N Gene Negative; SARS-CoV-2 S Gene Negative; SARS-CoV-2 by NAA Not Detected (NotDetected); SARS-CoV-2 orf1ab Negative
[2019-12-24] MEDS ORDERED: Vancomycin 1.5 GRAM/300 ML BAG 1.5 GM in Premix Bag 1 BAG IVPB SCH (14:00)
--- NOTE | 2019-12-24 15:02 | PDOC.HOSPP ---
- Subjective Encounter Date: 12/24/19 Encounter Time: 10:00 Subjective: pt up in bed complains of pain to her abdomen and lower back. - Objective Vital Signs & Weight: Vital Signs (12 hours) Temp Pulse Resp BP BP Pulse Ox 12/24/19 12:20 97.6 F 88 18 106/70 100 12/24/19 12:00 97.6 F 88 18 106/70 100 12/24/19 08:00 97.5 F L 96 18 132/80 100 12/24/19 04:00 97.4 F L 89 16 111/63 100 Weight Admit Weight 158 lb Weight 158 lb Result Diagrams: 12/24/19 03:36 12/24/19 03:36 Hospitalist ROS - Review of Systems Respiratory: denies: cough, dry, shortness of breath, hemoptysis, SOB with excertion, pleuritic pain, sputum, wheezing, other Cardiovascular: denies: chest pain, palpitations, orthopnea, paroxysmal noc. dyspnea, edema, light headedness, other Gastrointestinal: denies: nausea, vomiting, abdominal pain, diarrhea, constipation, melena, hematochezia, other - Medication Medications: Active Medications Generic Name Dose Route Start Last Admin Trade Name Freq PRN Reason Stop Dose Admin Acetaminophen 650 mg 12/24/19 08:35 12/24/19 08:55 Tylenol PO 650 mg Q6H PRN Administration Mild-Moderate Pain (1-5) Hydrocodone Bitart/Acetaminophen 1 tab 12/24/19 10:33 12/24/19 12:16 Gordo 5/325 PO 1 tab Q4H PRN Administration Pain Enoxaparin Sodium 40 mg 12/24/19 09:00 12/24/19 08:40 Lovenox SC 40 mg 09 ANA PAULA Administration Vancomycin HCl 1.5 gm/ Sodium 300 mls @ 200 mls/hr 12/24/19 12:00 12/24/19 12 :50 Chloride IVPB 12/24/19 15:00 300 mls NOW ANA PAULA Administration Melatonin 3 mg 12/23/19 23:39 12/23/19 23:45 Melatonin PO 3 mg HS PRN Administration Insomnia Morphine Sulfate 8 mg 12/24/19 08:01 12/24/19 08:22 Morphine SLOW IVP 8 mg Q6H PRN Administration Pain Nicotine 14 mg 12/23/19 23:59 12/24/19 00:03 Nicoderm Patch TD Not Given Q24HR ANA PAULA Pantoprazole Sodium 40 mg 12/24/19 09:00 12/24/19 08:40 Protonix IVP 40 mg DAILY ANA PAULA Administration - Exam Neck: negative: supple, symmetric, no JVD, no thyromegaly, no lymphadenopathy, no carotid bruit, JVD Heart: negative: RRR, no murmur, no gallops, no rubs, normal peripheral pulses, irregular, diminshed peripheral pulses, murmur present, II/IV, III/IV Respiratory: negative: CTAB, no wheezes, no rales, no ronchi, normal chest expansion, no tachypnea, normal percussion, rales, rhonchi, tachypneic, wheezes Gastrointestinal: negative: soft, non-tender, non-distended, normal bowel sounds , no palpable masses, no hepatomegaly, no splenomegaly, no bruit, no guarding, no rigidity, tender to palpation, distended, diminished bowl sounds, voluntary guarding Hosp A/P (1) Metastatic disease Code(s): C79.9 - SECONDARY MALIGNANT NEOPLASM OF UNSPECIFIED SITE Status: Acute (2) Abdominal pain Code(s): R10.9 - UNSPECIFIED ABDOMINAL PAIN Status: Acute (3) Ovarian cancer Status: Acute - Plan will start pt on pain meds. she has extensive disease and i have told her this. Her transfer has been denied by [facility]. I have notifed her about this too. She wants to go home and stay with her sister and she has an appointment she will set up in [place] for chemo. I have emphasized the need for compliance she understands. I have called and left a message for her sister.
[2019-12-24] MEDS ORDERED: Vancomycin 1 GM in Premix Bag 1 BAG IVPB SCH (22:00)
[2019-12-25] MEDS ORDERED: Vancomycin HCl 1.25 GM in Sodium Chloride 0.9% 250 ML 250 ML IVPB SCH (09:00)
== END 2019-12-24 18:06 | disposition home or self-care (01) | DRG 436 ==
LOC: EEVIPCON 13:33 → ERS 13:33 → ONC 19:06 → EEVIPCON 19:06
PROVIDERS: ADMIT Internal Medicine; ATTEND Internal Medicine
DX: C78.7 Secondary malignant neoplasm of liver and intrahepatic bile duct (principal); N17.9 Acute kidney failure, unspecified; N13.30 Unspecified hydronephrosis; Z20.828 Contact with and (suspected) exposure to other viral communicable diseases; F25.9 Schizoaffective disorder, unspecified; F32.9 Major depressive disorder, single episode, unspecified; F17.210 Nicotine dependence, cigarettes, uncomplicated; R82.71 Bacteriuria; M79.89 Other specified soft tissue disorders; D64.9 Anemia, unspecified; Z85.43 Personal history of malignant neoplasm of ovary; Z59.0 Homelessness; Z90.49 Acquired absence of other specified parts of digestive tract
CPT/HCPCS: 36415; 71045; 74177; 80048; 80053; 81003; 81015; 81025; 82550; 83605; 83690; 83735; 84100; 84484; 84550; 85025; 87040; 87086; 87149; 87635; 93005; 94760; C9113; J0692; J1200; J1650; J2270; J2405; J2765; J3370; J3475; J3490; J7050; Q9967; U0003